=== PATIENT | female | born 2000 ===

== ENCOUNTER 2020-03-18 14:42 | Outpatient (REF) | payer OTHER, SELFPAY ==
[2020-03-18 15:18] LABS: COVID-19 Test Negative (Negative)
== END 2020-03-18 14:43 | disposition home or self-care (01) ==
LOC: HO.LAB 14:42
PROVIDERS: Visit Provider Internal Medicine
DX: Z20.828 Contact with and (suspected) exposure to other viral communicable diseases (principal)
CPT/HCPCS: 87635

== ENCOUNTER 2020-04-11 07:23 | Outpatient (REF) | payer OTHER, SELFPAY | END 2020-04-11 07:24 | disposition home or self-care (01) | LOC: HO.LAB 07:23 | PROVIDERS: Visit Provider Internal Medicine | DX: Z20.828 Contact with and (suspected) exposure to other viral communicable diseases (principal) | CPT/HCPCS: U0003 ==

== ENCOUNTER 2020-04-12 12:09 | Outpatient (REF) | payer OTHER, SELFPAY ==
[2020-04-12 12:42] LABS: COVID-19 Test Negative (Negative)
== END 2020-04-12 12:10 | disposition home or self-care (01) ==
LOC: HO.EMPCOV 12:09
PROVIDERS: Visit Provider Internal Medicine
DX: Z20.828 Contact with and (suspected) exposure to other viral communicable diseases (principal)
CPT/HCPCS: 87635; C9803

== ENCOUNTER 2020-04-19 17:43 | Outpatient (REF) | payer OTHER, SELFPAY ==
[2020-04-19 18:26] LABS: COVID-19 Test Negative (Negative); IDNOW Serial# 55D5AD1C
== END 2020-04-19 17:44 | disposition home or self-care (01) ==
LOC: HO.LAB 17:43
PROVIDERS: Visit Provider Internal Medicine
DX: Z20.828 Contact with and (suspected) exposure to other viral communicable diseases (principal)
CPT/HCPCS: 87635; C9803

== ENCOUNTER 2020-06-09 07:36 | Outpatient (REF) | payer OTHER, SELFPAY ==
[2020-06-09 08:04] LABS: COVID-19 Test Negative (Negative)
== END 2020-06-09 07:37 | disposition home or self-care (01) ==
LOC: HO.EMPCOV 07:36
PROVIDERS: Visit Provider Internal Medicine
DX: Z20.822 Contact with and (suspected) exposure to COVID-19 (principal)
CPT/HCPCS: 36415; 87635; C9803

== ENCOUNTER → 2020-06-10 12:13 | Outpatient (BNVA) | payer OTHER, SELFPAY | PROVIDERS: Visit Provider Advanced Practice Midwife | DX: Z76.89 Persons encountering health services in other specified circumstances (principal) ==

== ENCOUNTER → 2020-07-01 13:46 | Outpatient (BNVA) | payer OTHER, SELFPAY | PROVIDERS: PCP Internal Medicine; Visit Provider Advanced Practice Midwife | DX: Z30.42 Encounter for surveillance of injectable contraceptive (principal); Z32.02 Encounter for pregnancy test, result negative | CPT/HCPCS: 81025; 96372; J1050 ==

== ENCOUNTER → 2020-10-13 09:37 | Outpatient (BNVA) | payer OTHER, SELFPAY | PROVIDERS: PCP Internal Medicine; Visit Provider Advanced Practice Midwife | DX: Z30.013 Encounter for initial prescription of injectable contraceptive (principal) | CPT/HCPCS: 81025; 96372; J1050 ==

== ENCOUNTER 2020-12-29 12:42 | Outpatient (REF) | payer OTHER, SELFPAY ==
[2020-12-30 00:46] LABS: CT PCR NOT DETECTED (Not Detect.); NG PCR NOT DETECTED (Not Detect.)
== END 2020-12-29 12:43 | disposition home or self-care (01) ==
LOC: HO.LAB 12:42
PROVIDERS: PCP Internal Medicine; Referring Provider Internal Medicine; Visit Provider Advanced Practice Midwife
DX: Z01.411 Encounter for gynecological examination (general) (routine) with abnormal findings (principal); N92.1 Excessive and frequent menstruation with irregular cycle; Z11.3 Encounter for screening for infections with a predominantly sexual mode of transmission; Z20.2 Contact with and (suspected) exposure to infections with a predominantly sexual mode of transmission
CPT/HCPCS: 87491; 87591

== ENCOUNTER → 2021-01-05 13:33 | Outpatient (BNVA) | payer OTHER, SELFPAY | PROVIDERS: PCP Internal Medicine; Visit Provider Advanced Practice Midwife | DX: Z30.42 Encounter for surveillance of injectable contraceptive (principal); N93.9 Abnormal uterine and vaginal bleeding, unspecified | CPT/HCPCS: 96372 ==

== ENCOUNTER → 2021-03-02 08:39 | Outpatient (BNVA) | payer OTHER, SELFPAY | PROVIDERS: PCP Internal Medicine; Visit Provider Advanced Practice Midwife | DX: Z30.42 Encounter for surveillance of injectable contraceptive (principal); N93.9 Abnormal uterine and vaginal bleeding, unspecified | CPT/HCPCS: 96372 ==

== ENCOUNTER 2021-03-12 13:49 | Outpatient (REF) | payer OTHER, SELFPAY ==
--- NOTE | ~2021-03-12 | XR_ITS ---
EXAMINATION: XR FOOT, RIGHT CLINICAL INFORMATION: Right foot contusion. COMPARISON: None TECHNIQUE: AP, lateral, and oblique views of the right foot. FINDINGS: There is no acute fracture or dislocation. The joint spaces are unremarkable. The tarsal bones are normally aligned. There is a very small plantar calcaneal spur. The soft tissues are unremarkable. XR/XR foot RT min 3V IMPRESSION: 1. No acute osseous abnormality. 2. Very small plantar calcaneal spur.
== END 2021-03-12 13:50 | disposition home or self-care (01) ==
LOC: HO.HMGCX 13:49
PROVIDERS: PCP Student in an Organized Health Care Education/Training Program; Visit Provider Internal Medicine
DX: S90.31XA Contusion of right foot, initial encounter (principal)
CPT/HCPCS: 73630

== ENCOUNTER 2021-04-07 20:29 | Outpatient (REF) | payer OTHER, SELFPAY ==
[2021-04-07 20:54] LABS: COVID-19 Test Negative (Negative); IDNOW Serial# 9DD0AD1C
== END 2021-04-07 20:30 | disposition home or self-care (01) ==
LOC: HO.LAB 20:29
PROVIDERS: Visit Provider Internal Medicine
DX: Z20.822 Contact with and (suspected) exposure to COVID-19 (principal)
CPT/HCPCS: 36415; 87635; C9803

== ENCOUNTER → 2021-04-27 08:49 | Outpatient (BNVA) | payer OTHER, SELFPAY | PROVIDERS: PCP Student in an Organized Health Care Education/Training Program; Visit Provider Advanced Practice Midwife | DX: Z30.42 Encounter for surveillance of injectable contraceptive (principal); N93.9 Abnormal uterine and vaginal bleeding, unspecified | CPT/HCPCS: 96372 ==

== ENCOUNTER 2021-04-30 19:17 | Outpatient (REF) | payer OTHER, SELFPAY ==
[2021-04-30 20:01] LABS: COVID-19 Test Negative (Negative)
== END 2021-04-30 19:18 | disposition home or self-care (01) ==
LOC: HO.LAB 19:17
PROVIDERS: PCP Internal Medicine; Visit Provider Internal Medicine
DX: Z20.822 Contact with and (suspected) exposure to COVID-19 (principal)
CPT/HCPCS: 36415; 87635

== ENCOUNTER 2021-05-27 15:33 | Outpatient (REF) | payer OTHER, SELFPAY ==
[2021-05-27 16:15] LABS: Influenza A PCR NEGATIVE (Negative); Influenza B PCR NEGATIVE (Negative); Resp Syncy Virus RNA Qual PCR NEGATIVE (Negative); SARS COV2 PCR INHOUSE POSITIVE (Negative)
== END 2021-05-27 15:34 | disposition home or self-care (01) ==
LOC: HO.LNP 15:33
PROVIDERS: Visit Provider Physician Assistant Medical
DX: Z20.822 Contact with and (suspected) exposure to COVID-19 (principal); J06.9 Acute upper respiratory infection, unspecified
CPT/HCPCS: 0241U

== ENCOUNTER → 2021-06-22 10:45 | Outpatient (BNVA) | payer OTHER, SELFPAY | PROVIDERS: PCP Internal Medicine; Visit Provider Advanced Practice Midwife | DX: N93.9 Abnormal uterine and vaginal bleeding, unspecified (principal) | CPT/HCPCS: 96372 ==

== ENCOUNTER 2021-07-08 06:20 | Outpatient (REF) | payer OTHER, SELFPAY ==
--- NOTE | ~2021-07-08 | XR_ITS ---
EXAMINATION: XR CHEST CLINICAL INFORMATION: Cough COMPARISON: None TECHNIQUE: 2 views of the chest were obtained. FINDINGS: No significant abnormality is noted involving the heart, lungs, mediastinum, bony thorax or soft tissues. XR/XR chest 2V IMPRESSION: Unremarkable examination.
== END 2021-07-08 06:21 | disposition home or self-care (01) ==
LOC: HO.XRAY 06:20
PROVIDERS: PCP Internal Medicine; Visit Provider Internal Medicine
DX: R05.9 Cough, unspecified (principal)
CPT/HCPCS: 71046

== ENCOUNTER 2021-08-02 15:47 | Outpatient (REF) | payer OTHER, SELFPAY ==
--- NOTE | 2021-08-02 17:27 | PFT_ITS ---
Forced vital capacity 99%. FEV1 is 82%. FEV1/FVC ratio 72. FEF 25-75 is 48%, which is moderately decreased. MVV is 72%, slightly decreased. Post bronchodilator therapy, FEF 25-75 does improve to almost normal. No other significant change. Total lung capacity 97 and residual volume 83%, normal. Diffusion capacity normal, 97%. CONCLUSION: Possible very mild degree of obstructive airway disorder, which improves after bronchodilator therapy. This finding is consistent with mild bronchial asthma, clinical correlation recommended. MD FILI Foster/MODL / [id number]
== END 2021-08-02 15:48 | disposition home or self-care (01) ==
LOC: HO.RESP 15:47
PROVIDERS: PCP Internal Medicine; Visit Provider Internal Medicine
DX: J45.40 Moderate persistent asthma, uncomplicated (principal)
CPT/HCPCS: 94060; 94727; 94729

== ENCOUNTER → 2021-08-17 08:59 | Outpatient (BNVA) | payer OTHER, SELFPAY | PROVIDERS: Visit Provider Advanced Practice Midwife | DX: Z30.42 Encounter for surveillance of injectable contraceptive (principal) | CPT/HCPCS: 96372 ==

== ENCOUNTER 2021-10-30 00:08 | Emergency (ER) | payer OTHER, SELFPAY ==
--- NOTE | ~2021-10-30 | CT_ITS ---
EXAMINATION: CT ABDOMEN AND PELVIS WITHOUT CONTRAST CLINICAL INFORMATION: Rectal bleeding and lower abdominal pain COMPARISON: None TECHNIQUE: Multidetector volumetric imaging was performed from the superior aspect of the liver through the pubic symphysis. Sagittal and coronal reformatted images were obtained on the technologist's workstation. This CT examination was performed using dose optimization techniques as appropriate, variously including the following: *Automated exposure control *Adjustment of mA and/or kV according to patient size (this includes techniques or standardized protocols for targeted exams where dose is matched to indication/reason for exam; i.e. extremities or head) *Use of iterative reconstruction technique DLP: 452 mGy-cm FINDINGS: LUNG BASES: The visualized lung bases are unremarkable. LIVER, GALLBLADDER, AND BILIARY TREE: The liver is normal in size, shape, and attenuation. No focal hepatic lesion or biliary ductal dilatation is present. The gallbladder is unremarkable with no evidence of radiopaque gallstones, gallbladder wall thickening, or obvious pericholecystic inflammatory changes. PANCREAS: Unremarkable. SPLEEN: Unremarkable. ADRENAL GLANDS: Unremarkable. KIDNEYS AND URETERS: The kidneys are normal in size, shape, and attenuation. No hydronephrosis, hydroureter, or calculi seen. No perinephric stranding. BLADDER: Unremarkable. GASTROINTESTINAL TRACT: No evidence of bowel obstruction. Evaluation for colonic wall thickening is limited due to luminal collapse in some regions, though there is suggestion of mild wall thickening in the descending colon. No free fluid or free air is seen. ABDOMINAL WALL: No significant hernia is appreciated. LYMPH NODES: No lymphadenopathy is seen, though assessment is limited in the absence of intravenous contrast. VASCULAR: Unremarkable. PELVIC VISCERA: Unremarkable. OSSEOUS STRUCTURES: Bilateral L5 pars defects noted. CT/CT abdomen pelvis wo con IMPRESSION: Suboptimal evaluation for wall thickening in some regions of the colon due to luminal collapse. However, there is mural prominence of the descending colon which could reflect a mild colitis in the proper clinical setting.
[2021-10-30 00:19] VITALS: BMI 26.5
[2021-10-30 00:31] VITALS: BP 117/89; PULSE 79; RESP 18; O2SAT 99
--- NOTE | 2021-10-30 00:34 | ED.GENADULT ---
HPI - General Adult General Chief complaint: General Medical Stated complaint: blood in stool Time Seen by Provider: 10/30/21 00:20 Source: patient Mode of arrival: ambulatory Limitations: no limitations History of Present Illness HPI narrative: 21 years old female came in for evaluation of lower abdominal pain and rectal bleed. Started about 4 hours ago when patient started to have some abdominal cramps felt like a premenstrual cramps, patient went and had a bowel movement which was mixed with bright red blood from her rectum. No nausea, no vomiting, no abdominal pain, no urinary tract infection. Never had a history of GI problems of or rectal bleeding. Related Data Previous Rx's Medication Instructions Recorded medroxyprogesterone 150 mg/mL 150 mg IM .q 8 weeks #1 ml 01/05/21 intramuscular suspension albuterol sulfate 90 mcg/actuation 2 puff PO Q6H PRN 30 Days #8.5 cap 05/29/21 aerosol inhaler albuterol sulfate 90 mcg/actuation 1 inh INHALATION QID PRN 30 Days 07/04/21 aerosol inhaler (ProAir HFA) #6.7 g fluticasone propionate 44 1 puff INHALATION BID 30 Days 07/04/21 mcg/actuation HFA aerosol inhaler #10.6 g (Flovent HFA) albuterol sulfate 90 mcg/actuation 2 puff INHALATION Q4-6H PRN #6.7 g 10/29/21 aerosol inhaler Allergies Allergy/AdvReac Type Severity Reaction Status Date / Time sulfamethoxazole Allergy Severe Hives Verified 07/04/21 12:51 [From Bactrim] trimethoprim [From Bactrim] Allergy Severe Hives Verified 07/04/21 12:51 Sulfa (Sulfonamide Allergy Unknown hives Verified 07/04/21 12:51 Antibiotics) seasonal Allergy Unknown Unknown Uncoded 07/04/21 12:51 SEASONAL ALLERGIES Allergy Unknown ITCH/SNEEZI Uncoded 07/04/21 12:51 NG Review of Systems Review of Systems: All other systems are reviewed and are negative Constitutional: Reports as per HPI and Reports no additional constitutional complaints Eyes: Reports as per HPI and Reports no additional eye complaints Reports system reviewed and no additional complaints, except as documented Cardiovascular: Reports as per HPI and Reports no additional cardiovascular complaints Respiratory: Reports as per HPI and Reports no additional respiratory complaints Gastrointestinal: Reports as per HPI and Reports no additional gastrointestinal complaints Genitourinary: Reports no additional female genitourinary complaints Musculoskeletal: Reports no additional musculoskeletal complaints Skin/Breast: Reports system reviewed and no additional complaints, except as docu Psychiatric: Reports no additional psychiatric complaints Endocrine: Reports no additional endocrine complaints Hematologic/Lymphatic: Reports no additional hematologic/lymphatic complaints Allergic/Immunologic: Reports no additional allergic/immunologic complaints Reports system reviewed and no additional complaints, except as documented and Reports Abnormal speech present [facility] Past Medical History Medical History Allergic rhinitis Mild asthma Moderate persistent asthma Surgical History No history of previous surgery Family History Family History Paternal Grandmother Breast cancer Mother HTN (hypertension) Diabetes mellitus Maternal Grandmother Throat cancer Social History Social History Housing: Apartment Alcohol intake: current Alcohol intake frequency: holidays/special occasions only Alcohol type: wine Patient Tobacco Use Status: Never used Tobacco e-Cigarette/Vaping Use: Never Used Second Hand Smoke Exposure: No Use of substances other than those prescribed or required for medical reasons: No Advance Directives: No Advance Directives Information Provided: No Patient : No service: No Current occupational status: employed 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 Blood pressure normal. Heart rate normal. Respiration rate normal. Temperature normal. Oxygen saturation normal. Appearance: Alert. Oriented X3. No acute distress. Head: Normal external exam. Normocephalic. Atraumatic. No Cohn signs noted. No raccoon eyes noted Eyes: PERRLA. EOMI. Conjunctiva and sclera normal. Eyelids normal. ENT: TM's Normal. Pharynx normal. Uvula midline. Moist mucous membranes. No trismus noted. No drooling noted. No muffled voice noted. Neck: Normal inspection. Neck supple. FROM. No adenopathy. Thyroid Normal. No meningeal signs. No neck mass noted. CVS: Normal heart rate and rhythm. Heart sound normal. No murmurs noted. Pulses normal throughout. Respiratory: No respiratory distress. Painless inspiration. Breath sounds normal. No wheezes/rales/rhonchi noted. Chest nontender. No accessory muscle usage noted or decreased air movement noted. Abdomen: Soft and nontender. Bowel sounds normal in all 4 quadrants. No distention noted. No organomegaly noted. No visible injury noted. Rectal exam: In presence of female strip cutter in the room rectal exam was performed, now external hemorrhoid or internal hemorrhoid, vault has no stool or blood. Back: No CVA tenderness. Full range of motion noted. Skin: Skin warm and dry. Normal skin color. Normal skin turgor. No rashes/lesions/lacerations noted. Extremities: No lower extremity edema. Extremities exhibit normal range of motion. Extremities nontender. Neuro: Oriented X 3. Cranial nerve exam: II-XII are grossly intact No motor deficit. No sensory deficit. Reflexes normal. Course Course Course Narrative: 21 years old female came in with lower abdominal pain and rectal bleeding. While in the emergency department no more bloody bowel movement or rectal bleeding, labs are unremarkable, vital signs/orthostatic vital sign are unremarkable, awaiting for CT abdomen and pelvis which signed out to Dr. Coughlin to check. If negative CT patient can go home and follow-up with GI as an outpatient Medical Decision Making Lab Data Lab results reviewed: Yes I reviewed the patient's lab results. Result diagrams: 10/30/21 00:54 10/30/21 00:54 Labs: Lab Results 10/30/21 10/30/21 10/30/21 Range/Units 00:54 00:54 01:03 WBC 4.9 (4.8-10.8) X10*3/uL RBC 4.29 (4.20-5.50) X10*6/uL Hgb 13.3 (12.0-16.0) g/dl Hct 39.7 (37.0-47.0) % MCV 92.5 (80.0-98.0) fL MCH 31.0 (27.0-33.0) pg MCHC 33.5 (31.0-35.0) g/dl RDW 12.5 (11.0-16.0) % Plt Count 198 (160-400) X10*3/uL MPV 9.2 L (9.4-12.3) fL Immature Gran % (Auto) 0.2 (0.0-0.4) % Neut % (Auto) 46.4 (45-73) % Lymph % (Auto) 37.8 (20-40) % Amelia % (Auto) 11.7 H (2-11) % Eos % (Auto) 3.7 (0-4) % Baso % (Auto) 0.2 (0-2) % Lymph # (Auto) 1.8 (1.2-4.9) X10*3/uL Amelia # (Auto) 0.6 (0.1-1.2) X10*3/uL Eos # (Auto) 0.2 (0.0-0.4) X10*3/uL Baso # (Auto) 0.0 (0.0-0.2) X10*3/uL Abs Immat Gran (auto) 0.01 (0.00-0.03) X10*3/uL Absolute Neuts (auto) 2.3 (2.0-8.3) x10*3/uL Absolute Nucleated RBC 0.000 (0.0-0.012) X10*3/uL Nucleated RBC % (auto) 0.0 (0.0-0.2) /100WBC Smear Tech's Comments VERIFIED Sodium 140 (135-145) mmol/L Potassium 3.8 (3.3-5.1) mmol/L Chloride 108 (96-108) mmol/L Carbon Dioxide 22 (22-29) mmol/L Anion Gap 14 (12-20) BUN 15 (9-16) mg/dL Creatinine 0.79 (0.5-1.4) mg/dL Estim Creat Clear Calc 102.5 Estimated GFR > 60 Random Glucose 96 (60-115) mg/dL Calcium 9.0 (8.4-10.2) mg/dL Total Bilirubin 0.2 (0.0-1.0) mg/dL Direct Bilirubin < 0.2 (0.0-0.5) mg/dL AST 18 (5-31) U/L ALT 13 (0-31) U/L Alkaline Phosphatase 68 (39-117) U/L Total Protein 7.8 (6.5-8.0) g/dL Albumin 4.3 (3.5-5.0) g/dL Lipase 22 (8-78) U/L Urine Color YELLOW Urine Appearance CLEAR Urine pH 6.0 (5.0-8.0) Ur Specific [place] 1.010 (1.005-1.025) Urine Protein NEG (NEG-TRACE) MG/DL Urine Glucose (UA) NEG (NEG) MG/DL Urine Ketones NEG (NEG) MG/DL Urine Blood NEG (NEG) Urine Nitrite NEG (NEG) Ur Leukocyte Esterase NEG (NEG) Urine Test (NEGATIVE) 10/30/21 Range/Units 01:03 WBC (4.8-10.8) X10*3/uL RBC (4.20-5.50) X10*6/uL Hgb (12.0-16.0) g/dl Hct (37.0-47.0) % MCV (80.0-98.0) fL MCH (27.0-33.0) pg MCHC (31.0-35.0) g/dl RDW (11.0-16.0) % Plt Count (160-400) X10*3/uL MPV (9.4-12.3) fL Immature Gran % (Auto) (0.0-0.4) % Neut % (Auto) (45-73) % Lymph % (Auto) (20-40) % Amelia % (Auto) (2-11) % Eos % (Auto) (0-4) % Baso % (Auto) (0-2) % Lymph # (Auto) (1.2-4.9) X10*3/uL Amelia # (Auto) (0.1-1.2) X10*3/uL Eos # (Auto) (0.0-0.4) X10*3/uL Baso # (Auto) (0.0-0.2) X10*3/uL Abs Immat Gran (auto) (0.00-0.03) X10*3/uL Absolute Neuts (auto) (2.0-8.3) x10*3/uL Absolute Nucleated RBC (0.0-0.012) X10*3/uL Nucleated RBC % (auto) (0.0-0.2) /100WBC Smear Tech's Comments Sodium (135-145) mmol/L Potassium (3.3-5.1) mmol/L Chloride (96-108) mmol/L Carbon Dioxide (22-29) mmol/L Anion Gap (12-20) BUN (9-16) mg/dL Creatinine (0.5-1.4) mg/dL Estim Creat Clear Calc Estimated GFR Random Glucose (60-115) mg/dL Calcium (8.4-10.2) mg/dL Total Bilirubin (0.0-1.0) mg/dL Direct Bilirubin (0.0-0.5) mg/dL AST (5-31) U/L ALT (0-31) U/L Alkaline Phosphatase (39-117) U/L Total Protein (6.5-8.0) g/dL Albumin (3.5-5.0) g/dL Lipase (8-78) U/L Urine Color Urine Appearance Urine pH (5.0-8.0) Ur Specific [place] (1.005-1.025) Urine Protein (NEG-TRACE) MG/DL Urine Glucose (UA) (NEG) MG/DL Urine Ketones (NEG) MG/DL Urine Blood (NEG) Urine Nitrite (NEG) Ur Leukocyte Esterase (NEG) Urine Test NEGATIVE (NEGATIVE) Discharge Plan Discharge Clinical Impression: Bright red rectal bleeding Patient Disposition: Home, Self-Care Instructions: Gastrointestinal Bleeding (ED) Prescriptions: No Action albuterol sulfate 90 mcg/actuation HFA aerosol inhaler 2 puff PO Q6H PRN (Reason: bronchospasm) 30 Days Qty: 8.5 6RF albuterol sulfate 90 mcg/actuation HFA aerosol inhaler 2 puff inhalation Q4-6H PRN (Reason: shortness of breath or wheezing) Qty: 6.7 0RF Flovent HFA 44 mcg/actuation HFA aerosol inhaler 1 puff inhalation BID 30 Days Qty: 10.6 2RF Rx Instructions: administer with spacer albuterol sulfate [ProAir HFA] 90 mcg/actuation HFA aerosol inhaler 1 inh inhalation QID PRN (Reason: shortness of breath or wheezing) 30 Days Qty: 6.7 2RF medroxyprogesterone [Depo-Provera] 150 mg/mL syringe 150 mg IM ONCE Qty: 1 0RF medroxyprogesterone 150 mg/mL suspension 150 mg IM .q 8 weeks Qty: 1 6RF Referrals: Shad Beatty MD [Physician] - Jackie Ambrocio MD [Primary Care Provider] - Stand Alone Forms: Work/School Release
[2021-10-30 00:42] VITALS: BP 108/73; PULSE 73
[2021-10-30 00:45] VITALS: BP 107/78; PULSE 71
[2021-10-30 00:46] VITALS: BP 117/79; PULSE 72
--- NOTE | 2021-10-30 00:56 | PC.NURSE ---
pt a&ox3, vss, labs drawn, 20G IV placed left AC, flds started. pt reports 3/10 lower abd cramping. had two episode of bright lisa blood/diarrhea - pt felt sudden urge to have a bowel movement. urine sample obtained. provider in room - rectal exam performed, pt tolerated well. pending CT scan.
[2021-10-30 00:58] LABS: Basophils Percent Auto 0.2 % (0-2); Eosinophils Absolute Auto 0.2 X10*3/uL (0.0-0.4); Eosinophils Percent Auto 3.7 % (0-4); Hematocrit 39.7 % (37.0-47.0); Hemoglobin 13.3 g/dl (12.0-16.0); Imm Gran Abs Auto 0.01 X10*3/uL (0.00-0.03); Imm Gran Pct Auto 0.2 % (0.0-0.4); Lymphocytes Absolute Auto 1.8 X10*3/uL (1.2-4.9); Lymphocytes Percent Auto 37.8 % (20-40); Mean Corpuscular HGB Conc 33.5 g/dl (31.0-35.0); Mean Corpuscular Volume 92.5 fL (80.0-98.0); Mean Platelet Volume 9.2 fL (9.4-12.3); Monocytes Absolute Auto 0.6 X10*3/uL (0.1-1.2); Monocytes Percent Auto 11.7 % (2-11); Neutrophils Absolute Auto 2.3 x10*3/uL (2.0-8.3); Neutrophils Percent Auto 46.4 % (45-73); Platelet Count 198 X10*3/uL (160-400); Red Blood Count 4.29 X10*6/uL (4.20-5.50); Red Cell Distribution Width 12.5 % (11.0-16.0); SCAN SMEAR FLAG 1; White Blood Count 4.9 X10*3/uL (4.8-10.8)
[2021-10-30 01:00] LABS: MANUAL DIFF FLAG SCAN
[2021-10-30 01:08] LABS: Appearance Urine CLEAR; Color Urine YELLOW; Glucose Urine UA NEG (NEG); Leukocyte Esterase Urine NEG (NEG); Nitrite Urine NEG (NEG); Urine Blood NEG (NEG); Urine Ketones NEG (NEG); Urine Protein NEG (NEG-TRACE)
[2021-10-30] MEDS: 0.9 % Sodium Chloride 1,000 ML 999 ML IV (01:09)
[2021-10-30 01:12] LABS: UPreg QC Valid YES; Urine Pregnancy NEGATIVE (NEGATIVE)
[2021-10-30 01:16] LABS: SLIDE REVIEW VERIFIED
[2021-10-30 01:25] LABS: Alanine Aminotransferase 13 U/L (0-31); Albumin Level 4.3 g/dL (3.5-5.0); Alkaline Phosphatase 68 U/L (39-117); Anion Gap 14 (12-20); Aspartate Amino Transferase 18 U/L (5-31); Bilirubin Direct < 0.2 mg/dL (0.0-0.5); Bilirubin Total 0.2 mg/dL (0.0-1.0); Blood Urea Nitrogen 15 mg/dL (9-16); Carbon Dioxide 22 mmol/L (22-29); Chloride 108 mmol/L (96-108); Creatinine Clr Calc Pharmacy 102.5; Estimated Glomerular Filt Rate > 60; Glucose Random 96 mg/dL (60-115); Lipase 22 U/L (8-78); Potassium 3.8 mmol/L (3.3-5.1); Sodium 140 mmol/L (135-145); Total Protein 7.8 g/dL (6.5-8.0)
== END 2021-10-30 03:27 | disposition home or self-care (01) ==
PROVIDERS: Emergency Provider Emergency Medicine; PCP Internal Medicine
DX: K62.5 Hemorrhage of anus and rectum (principal); R10.30 Lower abdominal pain, unspecified
CPT/HCPCS: 36415; 74176; 80048; 80076; 81003; 81025; 83690; 85025; 96360; 99284

== ENCOUNTER → 2021-11-03 07:48 | Outpatient (BNVA) | payer OTHER, SELFPAY | PROVIDERS: PCP Internal Medicine; Visit Provider Advanced Practice Midwife | DX: Z30.013 Encounter for initial prescription of injectable contraceptive (principal) | CPT/HCPCS: 81025 ==

== ENCOUNTER → 2021-11-04 14:58 | Outpatient (BNVA) | payer OTHER, SELFPAY | PROVIDERS: PCP Internal Medicine; Visit Provider Advanced Practice Midwife | DX: Z30.42 Encounter for surveillance of injectable contraceptive (principal) | CPT/HCPCS: 96372 ==

== ENCOUNTER → 2021-12-30 08:49 | Outpatient (BNVA) | payer OTHER, SELFPAY | PROVIDERS: PCP Internal Medicine; Visit Provider Advanced Practice Midwife | DX: Z30.42 Encounter for surveillance of injectable contraceptive (principal) | CPT/HCPCS: 96372 ==

== ENCOUNTER → 2022-02-24 12:42 | Outpatient (BNVA) | payer OTHER, SELFPAY | PROVIDERS: PCP Internal Medicine; Visit Provider Advanced Practice Midwife | DX: Z30.42 Encounter for surveillance of injectable contraceptive (principal) | CPT/HCPCS: 96372 ==

== ENCOUNTER → 2022-04-19 08:52 | Outpatient (BNVA) | payer OTHER, SELFPAY | PROVIDERS: PCP Internal Medicine; Visit Provider Advanced Practice Midwife | DX: Z30.42 Encounter for surveillance of injectable contraceptive (principal) | CPT/HCPCS: 96372 ==

== ENCOUNTER 2022-05-09 08:39 | Outpatient (REF) | payer OTHER, SELFPAY | END 2022-05-09 08:40 | disposition home or self-care (01) | LOC: HO.LNP 08:39 | PROVIDERS: Visit Provider Advanced Practice Midwife | DX: Z13.89 Encounter for screening for other disorder (principal) ==

== ENCOUNTER 2022-05-09 08:51 | Outpatient (REF) | payer OTHER, SELFPAY ==
[2022-05-09 11:05] LABS: HBc Num1 0.04 S/CO (0.00-0.79); HIV AB/AG Nonreactive (Nonreactive); HIV Num 1 0.06 S/CO (0.00-0.99); Hepatitis B Core Antibody Nonreactive (Nonreactive); ~HepC Num1 0.06 S/CO (0.00-0.79); ~Hepatitis C Antibody Nonreactive (Nonreactive)
[2022-05-09 13:32] LABS: Syphilis Screen Nonreactive (Nonreactive)
[2022-05-09 18:45] LABS: CT PCR NOT DETECTED (Not Detect.); NG PCR NOT DETECTED (Not Detect.)
== END 2022-05-09 08:52 | disposition home or self-care (01) ==
LOC: HO.LAB 08:51
PROVIDERS: PCP Internal Medicine; Visit Provider Advanced Practice Midwife
DX: Z11.3 Encounter for screening for infections with a predominantly sexual mode of transmission (principal); Z11.4 Encounter for screening for human immunodeficiency virus [HIV]; Z20.2 Contact with and (suspected) exposure to infections with a predominantly sexual mode of transmission
CPT/HCPCS: 86704; 86780; 86803; 87389; 87491; 87591

== ENCOUNTER 2022-06-07 17:34 | Outpatient (REF) | payer OTHER, SELFPAY ==
[2022-06-07 18:26] LABS: Influenza A PCR NEGATIVE (Negative); Influenza B PCR NEGATIVE (Negative); Resp Syncy Virus RNA Qual PCR NEGATIVE (Negative); SARS COV2 PCR INHOUSE NEGATIVE (Negative)
== END 2022-06-07 17:35 | disposition home or self-care (01) ==
LOC: HO.LNP 17:34
PROVIDERS: Visit Provider Physician Assistant
DX: Z20.822 Contact with and (suspected) exposure to COVID-19 (principal); B34.9 Viral infection, unspecified
CPT/HCPCS: 0241U

== ENCOUNTER → 2022-06-14 08:33 | Outpatient (BNVA) | payer OTHER, SELFPAY | PROVIDERS: PCP Internal Medicine; Visit Provider Advanced Practice Midwife | DX: Z30.42 Encounter for surveillance of injectable contraceptive (principal) | CPT/HCPCS: 96372 ==

== ENCOUNTER → 2022-08-09 08:51 | Outpatient (BNVA) | payer OTHER, SELFPAY | PROVIDERS: PCP Internal Medicine; Visit Provider Advanced Practice Midwife | DX: Z30.42 Encounter for surveillance of injectable contraceptive (principal); N93.9 Abnormal uterine and vaginal bleeding, unspecified | CPT/HCPCS: 96372 ==

== ENCOUNTER → 2022-10-04 08:47 | Outpatient (BNVA) | payer OTHER, SELFPAY | PROVIDERS: PCP Internal Medicine; Visit Provider Advanced Practice Midwife | DX: Z30.42 Encounter for surveillance of injectable contraceptive (principal) | CPT/HCPCS: 96372 ==

== ENCOUNTER 2022-11-19 04:00 | Outpatient (REF) | payer OTHER, SELFPAY ==
[2022-11-19 04:48] LABS: IDNOW Serial# 08D9AD1C; Strep A Nucleic Acid Negative (Negative)
== END 2022-11-19 04:01 | disposition home or self-care (01) ==
LOC: HO.LAB 04:00
PROVIDERS: Visit Provider Emergency Medicine Emergency Medical Services
DX: J02.0 Streptococcal pharyngitis (principal)
CPT/HCPCS: 87070; 87147; 87651

== ENCOUNTER 2022-12-06 13:31 | Outpatient (AMB) | payer OTHER, SELFPAY ==
[2022-12-06 13:42] VITALS: BP 110/72; BMI 28.7
--- NOTE | 2022-12-06 13:42 | MHC.OFFVIS ---
Intake Vital Signs 12/06/22 13:42 Height 5 ft 3 in Weight 162 lb BMI 28.7 BP 110/72 Intake Visit Reasons: BC discussion/30 Intake Note: Depo needed Prior Auth, denied by Insurance company not covered by plan The patient agreed to use of a medical tech during this encounter. Scribed for MINDY Cruz by Anne Muniz, medical tech, on 12/06/2022 at 1:55 pm EST. Allergies Sulfa (Sulfonamide Antibiotics) Allergy (Unknown, Verified 12/06/22 13:43) hives SEASONAL ALLERGIES Allergy (Unknown, Uncoded 11/20/22 08:29) ITCH/SNEEZING HPI HPI Comments History of Present Illness Details She is here today for BC discussion. Depo needed Prior Auth to be given q8wks., due to BTB and was previously covered, was denied by Insurance company not covered by plan as the prior auth yu used twice would not process the authorization and at this time she is frustrated and opts for another method. States she has had VB for a week since late for her Depo injection last week. Currently sexually active uses condoms as BC. She denies any risks to . Patient denies any contraindications to control such as tobacco use, migraines with aura, high blood pressure, liver disease, blood clotting disorders ATUL+, DVT, and Lupus. She denies smoking. [facility] Medical History Allergic rhinitis Mild asthma Moderate persistent asthma Surgical History No history of previous surgery Family History Paternal Grandmother Breast cancer Mother HTN (hypertension) Diabetes mellitus Maternal Grandmother Throat cancer Social History Household Members Other:: sister Housing: Apartment Alcohol intake: current Alcohol intake frequency: holidays/special occasions only Alcohol type: wine Patient Tobacco Use Status: Never used Tobacco e-Cigarette/Vaping Use: Never Used Second Hand Smoke Exposure: No service: No Current occupational status: employed 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 Current occupational exposures/hazards: No Sexual orientation: Straight/Heterosexual Gender identity: Female Female Reproductive History Menstrual Age of Menarche: 10 Physical Exam Vital Signs: Last Vital Signs BP 110/72 12/06/22 13:42 BMI result Body Mass Index 28.7 Const General: cooperative, healthy appearing, comfortable, no acute distress, well developed, alert and awake Assessment & Plan Assessment & Plan (1) control counseling: Code(s): Z30.09 - Encounter for other general counseling and advice on contraception Plan: Discussed: Counseled on OCP use: Reviewed use, side effects and warning of OCP, including ACHES. Instructions were given to use a back up method for contraception for 7 days. Always use condoms for STD prevention. Instructed patient to take for at least 2-3 months for her body to get acclimated to it. Recommended she take pill at same time every day with food to prevent stomach upset. If she starts missing doses, she may consider switching from OCP. Instructed to use back up method for the length of the pack if she misses more than one dose. Monitor her bleeding and contact the office with any concerns. She was instructed to go to ER if she develops loss of vision, severe headache that does not resolve, chest pain, difficulty breathing, abdominal pain, or severe pain or tenderness in extremity. She will call the office with any concerns. Rx for Apri sent to pharmacy. Instructed patient to start OCP within the first 5 days of her period. Return in 3-4 months for pill check. All of her questions and concerns were addressed to the best of my ability and shared decision making. She is agreeable to plan of care. (2) Contraceptive management: Code(s): Z30.9 - Encounter for contraceptive management, unspecified Coding Level of Care Code Est Pt Level 3 (66433) Diagnoses control counseling Z30.09 Contraceptive management Z30.9
== END 2022-12-06 14:13 | disposition home or self-care (01) ==
LOC: HO.HWS 13:31
PROVIDERS: PCP Internal Medicine; Visit Provider Advanced Practice Midwife
DX: Z30.09 Encounter for other general counseling and advice on contraception (principal); Z30.9 Encounter for contraceptive management, unspecified
CPT/HCPCS: 99213

== ENCOUNTER → 2022-12-06 13:31 | Outpatient (BNVA) | payer OTHER, SELFPAY | PROVIDERS: PCP Internal Medicine; Visit Provider Advanced Practice Midwife ==

== ENCOUNTER 2022-12-08 14:05 | Emergency (ER) | payer OTHER, SELFPAY ==
--- NOTE | ~2022-12-08 | US_ITS ---
EXAMINATION: US VENOUS ULTRASOUND WITH DOPPLER LOWER EXTREMITY, RIGHT CLINICAL INFORMATION: Right lower extremity pain. COMPARISON: None available. TECHNIQUE: Ultrasound of the deep veins is performed from the hip to the calf with compression sonography and color and pulse Doppler assessment. Spectral analysis with color-flow imaging is performed. FINDINGS: There is normal venous compression and respiratory variation and augmented flow. The visualized common femoral vein, superficial femoral vein, profunda femoral vein, popliteal vein, and the trifurcation region shows no evidence of deep venous thrombosis. If the patient's symptoms persist, followup ultrasound in 5 days 7 days might be of value to exclude proximal propagation from a non-visualized calf vein. US/US venous duplex LE RT IMPRESSION: No DVT demonstrated in the right lower extremity.
--- NOTE | 2022-12-08 14:57 | ED_ITS ---
HPI - Extremity Injury (Lower) General Chief Complaint: Extremity Injury, Lower Stated Complaint: quest dvt r leg Time Seen by Provider: 12/08/22 15:42 Source: patient and RN notes reviewed Mode of arrival: ambulatory Limitations: no limitations History of Present Illness HPI Narrative: This is a [id number]-female presenting to the emergency department with complaints of right calf pain and rash since today. Pt denies any recent trauma, injury, heavy lifting to her calf. 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 Patient denies any fevers, chills, chest pain, shortness of breath. No recent travel, surgery, hospitalizations or surgeries. She is on the depo-shot. No hx of blood clots or cancer history. No clotting disorders that run in her family. No other complaints or concerns at this time. Severity: moderate Relieving factors: nothing Exacerbating factors: nothing Other symptoms: none Related Data Previous Rx's Medication Instructions Recorded fluticasone propionate 44 1 puff inhalation BID 30 days 07/04/21 mcg/actuation HFA aerosol inhaler #10.6 grams (Flovent HFA) albuterol sulfate 90 mcg/actuation 2 puff inhalation Q6H PRN 06/07/22 aerosol inhaler shortness of breath or wheezing #6.7 grams cyclobenzaprine 10 mg tablet 10 mg PO Q8H #20 tabs 08/01/22 albuterol sulfate 90 mcg/actuation 2 puff inhalation Q4-6H PRN 11/25/22 aerosol inhaler shortness of breath or wheezing #6.7 grams desogestrel 0.15 mg-ethinyl 1 tab PO DAILY 28 days #28 tabs 12/08/22 estradiol 0.03 mg tablet (Apri) Allergies Allergy/AdvReac Type Severity Reaction Status Date / Time Sulfa (Sulfonamide Allergy Unknown hives Verified 12/06/22 13:43 Antibiotics) SEASONAL ALLERGIES Allergy Unknown ITCH/SNEEZI Uncoded 11/20/22 08:29 NG Review of Systems Review of Systems: Yes all other systems are reviewed and are negative PMFSH Past Medical History Medical History Allergic rhinitis Mild asthma Moderate persistent asthma Surgical History No history of previous surgery Family History Family History Paternal Grandmother Breast cancer Mother HTN (hypertension) Diabetes mellitus Maternal Grandmother Throat cancer Social History Social History Household Members Other:: sister Housing: Apartment Alcohol intake: current Alcohol intake frequency: holidays/special occasions only Alcohol type: wine Patient Tobacco Use Status: Never used Tobacco e-Cigarette/Vaping Use: Never Used Second Hand Smoke Exposure: No Advance Directives: No Advance Directives Information Provided: No service: No Current occupational status: employed 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 No acute distress. HEENT: Normal inspection CVS: Normal heart rate and rhythm. Pulses normal. Respiratory: No respiratory distress Skin: Warm, dry, no rashes noted to exposed skin. Normal skin color. Normal skin turgor. Extremities: Right anterior leg there is a flat, slightly reticular hyperpigmentation that is slightly tender to palpation, no induration, or warmth. Right calf is nontender. Negative Homans sign. DP pulses 2+. Sensation intact. Neuro: Oriented X 3. No motor deficit. No sensory deficit. Course Course Course Narrative: RME: 22yoF w/PMHx asthma, on Depro Provera c/o RLE pain/calf pain w/mild swelling and mottling noted today. +RLE mottling, mild calf ttp, no pitting edema, NV intact distally US venous duplex ordered Full HPI, ROS and PE to be performed by primary ED provider. Medical Decision Making Medical Decision Making MDM Narrative: 22 year old female presenting to the emergency department for evaluation of right leg pain and rash since this morning. 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 On examination, patient has a reticular rash consistent with erythema AB igne. Ultrasound of right lower extremity shows no DVT. Patient vital signs are within normal limits , no tenderness to palpation along the calf. Patient is otherwise feeling well. I explained to patient that exposure to space heaters can cause this type of rash. This rash is self limiting and will resolve on its own. Patient educated the importance of returning if any new or worsening symptoms occur, patient understands and agrees with planned. Patient stable for discharge. Differential Diagnosis Differential Diagnoses: The differential diagnosis associated with the presentation includes erythema ab igne, cellulitis, contact dermatitiss, DVT Radiology Impression Discussion of test interpretation with radiology: I have reviewed the radiologist's reading. Radiologist Impression: EXAMINATION:? US VENOUS ULTRASOUND WITH DOPPLER LOWER EXTREMITY, RIGHT CLINICAL INFORMATION:? Right lower extremity pain. COMPARISON:? None available. TECHNIQUE: Ultrasound of the deep veins is performed from the hip to the calf with compression sonography and color and pulse Doppler assessment. Spectral analysis with color-flow imaging is performed. FINDINGS: There is normal venous compression and respiratory variation and augmented flow. The visualized common femoral vein, superficial femoral vein, profunda femoral vein, popliteal vein, and the trifurcation region shows no evidence of deep venous thrombosis. If the patient's symptoms persist, followup ultrasound in 5 days 7 days might be of value to exclude proximal propagation from a non-visualized calf vein. US/US venous duplex LE RT IMPRESSION: No DVT demonstrated in the right lower extremity. Dictated By: Massiel Asencio MD Discharge Plan Discharge Clinical Impression: Erythema ab igne Patient Disposition: Home, Self-Care Instructions: Photosensitivity (ED) Additional Instructions: Your ultrasound was negative for a blood clot today. Your symptoms are likely due to a reaction to using a space heater. Please stop using space heaters especially being in close proximity to one. Your symptoms should resolve on its own. You may take Tylenol or Motrin as needed for your pain. Please rest your leg. If any new or worsening symptoms occur please return for re-evaluation. Prescriptions: No Action albuterol sulfate 90 mcg/actuation HFA aerosol inhaler 2 puff inhalation Q4-6H PRN (Reason: shortness of breath or wheezing) Qty: 6.7 0RF desogestrel-ethinyl estradiol [Apri] 0.15-0.03 mg tablet 1 tab PO DAILY 28 Days Qty: 28 3RF cyclobenzaprine 10 mg tablet 10 mg PO Q8H Qty: 20 0RF Flovent HFA 44 mcg/actuation HFA aerosol inhaler 1 puff inhalation BID 30 Days Qty: 10.6 2RF Rx Instructions: administer with spacer Adacel(Tdap Adolesn/Adult)(PF) 2 Lf-(2.5-5-3-5 mcg)-5Lf/0.5 mL syringe 0.5 ml IM ONCE Qty: 0.5 0RF albuterol sulfate 90 mcg/actuation HFA aerosol inhaler 2 puff inhalation Q6H PRN (Reason: shortness of breath or wheezing) Qty: 6.7 0RF Interventions: ED Discharge Assessment Last Done: 12/08/22 17:18 Discharge Date/Time: 12/08/22 17:19
[2022-12-08 14:58] VITALS: BP 126/88; PULSE 84; RESP 14; TEMP 36.6; O2SAT 99; BMI 28.7
[2022-12-08 16:16] VITALS: BP 128/87; PULSE 69; RESP 16; TEMP 37.2; O2SAT 98
== END 2022-12-08 17:19 | disposition home or self-care (01) ==
PROVIDERS: Emergency Provider Emergency Medicine; PCP Internal Medicine
DX: L59.0 Erythema ab igne [dermatitis ab igne] (principal); M79.661 Pain in right lower leg; R21 Rash and other nonspecific skin eruption; J45.20 Mild intermittent asthma, uncomplicated; Z79.899 Other long term (current) drug therapy
CPT/HCPCS: 93971; 99283; 99284

== ENCOUNTER 2023-03-13 10:35 | Outpatient (AMB) | payer OTHER, SELFPAY ==
[2023-03-13 10:36] VITALS: BP 120/80; BMI 29.2
--- NOTE | 2023-03-13 10:36 | MHC.OFFVIS ---
Intake Vital Signs 03/13/23 10:36 Height 5 ft 3 in Weight 165 lb BMI 29.2 BP 120/80 Intake Visit Reasons: 3 month pill check Intake Note: The patient agreed to use of a director medical economics during this encounter. Scribed for MINDY Cruz by Anne Muniz director medical economics, on 03/13/2023 at 10:49 am EST. Allergies Sulfa (Sulfonamide Antibiotics) Allergy (Unknown, Verified 03/13/23 10:38) hives SEASONAL ALLERGIES Allergy (Unknown, Uncoded 11/20/22 08:29) ITCH/SNEEZING Is last menstrual period known: Yes Last menstrual period: 02/25/23 HPI HPI Comments History of Present Illness Details She is here for her 3 month BC OCP check up. Reports she is doing well; experiencing slight breast tenderness cramps but is taking OTC meds which help. She denies any contraindications to control such as: migraines with aura, history of DVT or pulmonary emboli, high blood pressure, liver disease, thrombolic disorders, Lupus, +ATUL, or smoking. [facility] Medical History Moderate persistent asthma Allergic rhinitis Mild asthma Surgical History No history of previous surgery Family History Paternal Grandmother Breast cancer Mother HTN (hypertension) Diabetes mellitus Maternal Grandmother Throat cancer Social History Household Members Other:: sister Housing: Apartment Alcohol intake: current Alcohol intake frequency: holidays/special occasions only Alcohol type: wine Patient Tobacco Use Status: Never used Tobacco e-Cigarette/Vaping Use: Never Used Second Hand Smoke Exposure: No service: No Current occupational status: employed 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 Current occupational exposures/hazards: No Sexual orientation: Straight/Heterosexual Gender identity: Female Female Reproductive History Menstrual Age of Menarche: 10 Date of last menstrual period: 02/25/23 Physical Exam Vital Signs: Last Vital Signs BP 120/80 03/13/23 10:36 BMI result Body Mass Index 29.2 Const General: cooperative, healthy appearing, comfortable, no acute distress, well developed, alert and awake Assessment & Plan Assessment & Plan (1) Contraceptive surveillance: Code(s): Z30.40 - Encounter for surveillance of contraceptives, unspecified Plan: Discussed: She was instructed to go to ER if she develops loss of vision, severe headache that does not resolve, chest pain, difficulty breathing, abdominal pain, or pain or tenderness in extremity. Call the office with any concerns. Rx for Apri sent to pharmacy, Rx 84 pack. All of her questions and concerns were addressed to the best of my ability and shared decision making. She is agreeable to plan of care. RTO for AG 04/2023. Medications: Refilled desogestrel-ethinyl estradiol 0.15-0.03 mg (Apri) 1 tab PO DAILY 84 tabs 0RF 28 days Coding Level of Care Code Est Pt Level 3 (41575) Diagnoses Contraceptive surveillance Z30.40
== END 2023-03-13 10:50 | disposition home or self-care (01) ==
PROVIDERS: PCP Internal Medicine; Visit Provider Advanced Practice Midwife
DX: Z30.40 Encounter for surveillance of contraceptives, unspecified (principal)
CPT/HCPCS: 99213

== ENCOUNTER → 2023-03-13 10:35 | Outpatient (BNVA) | payer OTHER, SELFPAY | PROVIDERS: PCP Internal Medicine; Visit Provider Advanced Practice Midwife ==

== ENCOUNTER 2023-04-20 23:06 | Emergency (ER) | payer OTHER, SELFPAY ==
--- NOTE | ~2023-04-20 | XR_ITS ---
EXAMINATION: XR CHEST CLINICAL INFORMATION: Cough. COMPARISON: None available. TECHNIQUE: 2 views of the chest were obtained. FINDINGS: No significant abnormality is noted involving the heart, lungs, mediastinum, bony thorax or soft tissues. XR/XR chest 2V IMPRESSION: Unremarkable examination.
[2023-04-20 23:09] VITALS: BP 119/82; PULSE 110; RESP 18; TEMP 36.4; O2SAT 97; BMI 27.8
[2023-04-20 23:57] LABS: Influenza A PCR NEGATIVE (Negative); Influenza B PCR NEGATIVE (Negative); Resp Syncy Virus RNA Qual PCR NEGATIVE (Negative); SARS COV2 PCR INHOUSE NEGATIVE (Negative)
--- NOTE | 2023-04-21 00:21 | ED.URI ---
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 no fever no chills using inhaler without much relief patient has not seen any ENT specialist Related Data Previous Rx's Medication Instructions Recorded desogestrel 0.15 mg-ethinyl 1 tab PO DAILY 28 days #84 tabs 03/13/23 estradiol 0.03 mg tablet (Apri) albuterol sulfate 90 mcg/actuation 2 puff inhalation Q4-6H PRN 04/10/23 aerosol inhaler shortness of breath or wheezing #6.7 grams albuterol sulfate 90 mcg/actuation 2 puff inhalation Q4-6H PRN 04/21/23 aerosol inhaler (ProAir HFA) shortness of breath or wheezing #8.5 grams amoxicillin 875 mg-potassium 1 tab PO BID #20 tabs 04/21/23 clavulanate 125 mg tablet fluticasone propionate 50 2 spray intranasal DAILY #16 grams 04/21/23 mcg/actuation nasal spray,suspension montelukast 10 mg tablet 10 mg PO BEDTIME #90 tabs 04/21/23 (Singulair) prednisone 20 mg tablet 40 mg (2 x 20 mg) PO DAILY #10 tabs 04/21/23 Allergies Allergy/AdvReac Type Severity Reaction Status Date / Time Sulfa (Sulfonamide Allergy Unknown hives Verified 03/13/23 10:38 Antibiotics) SEASONAL ALLERGIES Allergy Unknown ITCH/SNEEZI Uncoded 11/20/22 08:29 NG Review of Systems Review of Systems: Yes all other systems are reviewed and are negative PMFSH Past Medical History Medical History Moderate persistent asthma Allergic rhinitis Mild asthma Surgical History No history of previous surgery Family History Family History Paternal Grandmother Breast cancer Mother HTN (hypertension) Diabetes mellitus Maternal Grandmother Throat cancer Social History Household Members Other:: sister Housing: Apartment Alcohol intake: current Alcohol intake frequency: holidays/special occasions only Alcohol type: wine Patient Tobacco Use Status: Never used Tobacco e-Cigarette/Vaping Use: Never Used Second Hand Smoke Exposure: No Advance Directives: No Advance Directives Information Provided: Yes service: No Current occupational status: employed 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 Oriented X3. No acute distress. ENT: Pharynx normal. Oral Mucosa moist inflamed turbinates with mucopurulent discharge Neck: Normal inspection. Neck supple. CVS: Normal heart rate and rhythm. Pulses normal. Respiratory: No respiratory distress. Equal air entry bilateral, no wheezing/rales/rhonchi Abdomen: Soft and nontender. Skin: Skin warm and dry. Normal skin color. Normal skin turgor. Extremities: No lower extremity edema. Neuro: Oriented X 3. Medications Administered Discontinued Medications Generic Name Dose Route Start Last Admin Trade Name Freq PRN Reason Stop Dose Admin Amoxicillin/Clavulanate Potassium 875 mg 04/21/23 00:32 04/21/23 00:49 Amoxicillin/Potassium Clav 875 Mg Tablet PO 04/21/23 00:33 875 mg ONCE ONE Administration Dexamethasone 10 mg 04/21/23 00:32 04/21/23 00:49 Dexamethasone 2 Mg Tablet PO 04/21/23 00:33 10 mg ONCE ONE Administration Medical Decision Making Medical Decision Making MDM Narrative: Patient has chronic allergies asthma chronic rhinosinusitis discharge patient home on nasal spray antibiotic prednisone Lab Data [facility] Lab Attestation statement: I reviewed the patient's lab results. Labs: Lab Results 04/20/23 Range/Units 23:17 Influenza Type A (PCR) NEGATIVE (Negative) Influenza Type B (PCR) NEGATIVE (Negative) RSV RNA Qual (PCR) NEGATIVE (Negative) SARS-CoV-2 RNA (RT-PCR) NEGATIVE (Negative) Discharge Plan Discharge Clinical Impression: Asthmatic bronchitis , chronic Patient Disposition: Home, Self-Care Instructions: Asthma (ED), Chronic Bronchitis (ED) Additional Instructions: Continue to use your inhaler Nasal spray as prescribed Take Singulair daily Prednisone and antibiotic as prescribed Follow-up with PCP Prescriptions: New fluticasone propionate 50 mcg/actuation spray,suspension 2 spray intranasal DAILY Qty: 16 1RF Rx Instructions: administer into each nostril montelukast [Singulair] 10 mg tablet 10 mg PO BEDTIME Qty: 90 0RF prednisone 20 mg tablet 40 mg PO DAILY Qty: 10 0RF amoxicillin-pot clavulanate 875-125 mg tablet 1 tab PO BID Qty: 20 0RF albuterol sulfate [ProAir HFA] 90 mcg/actuation HFA aerosol inhaler 2 puff inhalation Q4-6H PRN (Reason: shortness of breath or wheezing) Qty: 8.5 0RF No Action albuterol sulfate 90 mcg/actuation HFA aerosol inhaler 2 puff inhalation Q4-6H PRN (Reason: shortness of breath or wheezing) Qty: 6.7 0RF Adacel(Tdap Adolesn/Adult)(PF) 2 Lf-(2.5-5-3-5 mcg)-5Lf/0.5 mL syringe 0.5 ml IM ONCE Qty: 0.5 0RF desogestrel-ethinyl estradiol [Apri] 0.15-0.03 mg tablet 1 tab PO DAILY 28 Days Qty: 84 0RF Interventions: ED Discharge Assessment Last Done: 04/21/23 00:53 Discharge Date/Time: 04/21/23 00:54
[2023-04-21 00:39] VITALS: PULSE 95; RESP 17; O2SAT 99
[2023-04-21] MEDS: dexAMETHasone 2 MG TABLET 10 MG PO (00:49)
[2023-04-21] MEDS: Amoxicillin/Potassium Clav 875 MG TABLET PO (00:49)
== END 2023-04-21 00:54 | disposition home or self-care (01) ==
PROVIDERS: Emergency Provider Internal Medicine
DX: J42 Unspecified chronic bronchitis (principal); R06.02 Shortness of breath; R05.9 Cough, unspecified; Z20.822 Contact with and (suspected) exposure to COVID-19; Z20.828 Contact with and (suspected) exposure to other viral communicable diseases
CPT/HCPCS: 0241U; 71046; 99283; J8540

== ENCOUNTER 2023-05-15 08:31 | Outpatient (AMB) | payer OTHER, SELFPAY ==
--- NOTE | 2023-05-15 08:41 | MHC.OFFVIS ---
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 Doing well with no concerns. Doing well on Apri. She tries to eat healthy and stays active with exercise. Currently is sexually active. She denies vaginal itching and irritation. STI screening offered; she accepts. Denies family history of breast, ovarian or colon cancer. Last pap smear 11/2019, negative. She denies any contraindications to control such as: migraines with aura, history of DVT or pulmonary emboli, high blood pressure, liver disease, thrombolic disorders, Lupus, +ATUL, breast cancer, or smoking. [facility] Medical History Moderate persistent asthma Allergic rhinitis Mild asthma Surgical History No history of previous surgery Family History Paternal Grandmother Breast cancer Mother HTN (hypertension) Diabetes mellitus Maternal Grandmother Throat cancer Social History (Updated 05/15/23 @ 09:08 by Missy Laura CNM) Household Members Other:: sister Housing: Apartment Alcohol intake: current Alcohol intake frequency: holidays/special occasions only Alcohol type: wine Patient Tobacco Use Status: Never used Tobacco e-Cigarette/Vaping Use: Never Used Second Hand Smoke Exposure: No service: No Current occupational status: employed 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, 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 Current occupational exposures/hazards: No Sexual orientation: Straight/Heterosexual Gender identity: Female Female Reproductive History Menstrual Age of Menarche: 10 Date of last menstrual period: 04/24/23 control method: pills Total pregnancies: 0 Date of last pap smear: 12/18/19 (neg) Review of Systems Const All systems reviewed & are unremarkable except as noted in HPI and below Reports as per HPI Eyes Reports no additional complaints ENT Reports no additional complaints Card Reports no additional complaints Resp Reports no additional complaints GI Reports as per HPI and Reports no additional complaints Reports as per HPI Musc Reports no additional complaints Skin/Breast Reports as per HPI Neuro Reports no additional complaints Psych Reports no additional complaints Endo Reports no additional complaints Madan/Lymph Reports no additional complaints Aller/Immun Reports no additional complaints Physical Exam Vital Signs: Last Vital Signs BP 110/70 05/15/23 08:44 BMI result Body Mass Index 29.4 Const General: cooperative, healthy appearing, no acute distress, well developed and alert Orientation/consciousness: patient oriented x3 HEENT Head: Yes normal to inspection Eyes General: appearance normal, both eyes and all related structures Neck Neck: Yes normal visual inspection Thyroid: Thyroid normal Chest Chest palpation & inspection: normal inspection of the chest and other (no puckering, dimpling, peau de orange, retraction, discharge, masses) Breast/axilla inspection: normal inspection of the breasts Breast/axilla palpation: normal palpation of the breasts Resp Effort & Inspection: normal respiratory effort GI Inspection: Yes normal to inspection Palpation (GI): Soft to palpation Rectal Exam - Female: deferred General: Yes bladder normal to palpation External Female Exam: normal external appearance and normal appearance of the urethra Speculum Exam - Vagina: normal appearance of the vagina, normal palpation and normal vaginal discharge Speculum Exam - Cervix: normal appearance of the cervix and normal palpation Bimanual exam- vagina & uterus: normal bimanual exam, normal palpation, uterine size normal, bladder normal to palpation, normal palpation and non-tender Bimanual Exam- Adnexa, other: no masses Skin General skin exam: no rashes or lesions noted Rashes: no rashes Neuro General: patient oriented x3 Cognition (Neuro): normal cognition Extrem General: Yes normal to inspection Psych Attitude: cooperative Thought process: Normal thought process present Assessment & Plan Assessment & Plan (1) Encounter for well woman exam with routine gynecological exam: Code(s): Z01.419 - Encounter for gynecological examination (general) (routine) without abnormal findings Plan Discussed: Current recommendations for pap smears per ASCCP guidelines. Breast awareness and periodic breast exams. Maintain a healthy lifestyle including a well balanced diet and routine exercise. Use condoms for STI prevention. control hormone use warnings: go to ER if and loss of vision, blindness, severe headache, chest pain or difficulty breathing, severe abdominal pain, or any pain or swelling in an extremity. All of her questions and concerns were addressed to the best of my ability. RTO in one year for annual expressive therapist examination. This note is constructed using voice recognition software. 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 Orders: Orders HIV Ab/Ag Today Z20.2 - Contact with and (suspected) exposure to infections with a predominantly sexual mode of transmission Hepatitis C Antibody Today Z20.2 - Contact with and (suspected) exposure to infections with a predominantly sexual mode of transmission Hepatitis B Core Antibody Today Z20.2 - Contact with and (suspected) exposure to infections with a predominantly sexual mode of transmission Syphilis Screen Today Z20.2 - Contact with and (suspected) exposure to infections with a predominantly sexual mode of transmission Medications: Refilled desogestrel-ethinyl estradiol 0.15-0.03 mg (Apri) 1 tab PO DAILY 28 days 84 tabs 4RF Coding Level of Care Code Est Pt Prev Care 18-39y(36616) Diagnoses Encounter for well woman exam with routine gynecological exam Z01.419
[2023-05-15 08:44] VITALS: BP 110/70; BMI 29.4
== END 2023-05-15 09:10 | disposition home or self-care (01) ==
PROVIDERS: Visit Provider Advanced Practice Midwife
DX: Z01.419 Encounter for gynecological examination (general) (routine) without abnormal findings (principal)
CPT/HCPCS: 99395

== ENCOUNTER 2023-05-15 08:31 | Outpatient (REF) | payer OTHER, SELFPAY ==
[2023-05-15 16:17] LABS: CT PCR NOT DETECTED (Not Detect.); NG PCR NOT DETECTED (Not Detect.)
== END 2023-05-15 08:32 | disposition home or self-care (01) ==
LOC: HO.LNP 08:31
PROVIDERS: Visit Provider Advanced Practice Midwife
DX: Z01.419 Encounter for gynecological examination (general) (routine) without abnormal findings (principal); Z20.2 Contact with and (suspected) exposure to infections with a predominantly sexual mode of transmission
CPT/HCPCS: 0353U; 88142

== ENCOUNTER 2023-09-01 10:22 | Outpatient (AMB) | payer OTHER, SELFPAY ==
[2023-09-01 10:41] VITALS: BP 118/78; PULSE 100; TEMP 37.2; O2SAT 97; BMI 29.0
--- NOTE | 2023-09-01 10:41 | MHC.OFFWIV ---
Intake Vital Signs 09/01/23 10:41 Height 5 ft 3 in Weight 163 lb 8 oz BMI 29.0 BP 118/78 Blood Pressure Location Rt brachial Position Sitting Pulse 100 Pulse Source Pulse Oximeter Temp 98.9 F Temp Source Oral Pulse Oximetry (%) 97 Oxygen Delivery Method Room Air Intake Visit Reasons: EP ?Strep Intake Note: Patient is here with sore throat since , with fever, chills, and body aches, getting progressively worse. Patient Tobacco Use Status: Never used Tobacco Allergies Sulfa (Sulfonamide Antibiotics) Allergy (Unknown, Verified 09/01/23 10:44) hives SEASONAL ALLERGIES Allergy (Unknown, Uncoded 09/01/23 10:44) ITCH/SNEEZING Do you need a note to return to daycare/school/sports/work: Yes HPI EP ?Strep HPI Details Patient is a 23-year-old female comes to the walk-in clinic 2 days after onset of nasal congestion, postnasal drip, sore throat, chills, myalgias, and rare cough. She works at [employer]. She reports history of asthma, and feeling the need to use her inhaler more often due to feeling her throat tight from her tonsils, as well as occasional heavy breathing. She has no wheezing and no persistent cough symptoms. She denies shortness of breath, difficulty breathing, headache or dizziness, loss of sense of taste or smell, nausea vomiting or diarrhea, weakness, or other significant associated symptoms. [facility] Medical History Moderate persistent asthma Allergic rhinitis Mild asthma Surgical History No history of previous surgery Family History Paternal Grandmother Breast cancer Mother HTN (hypertension) Diabetes mellitus Maternal Grandmother Throat cancer Social History Household Members Other:: sister Housing: Apartment Alcohol intake: current Alcohol intake frequency: holidays/special occasions only Alcohol type: wine Patient Tobacco Use Status: Never used Tobacco e-Cigarette/Vaping Use: Never Used Second Hand Smoke Exposure: No service: No Current occupational status: employed 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, 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 Current occupational exposures/hazards: No Sexual orientation: Straight/Heterosexual Gender identity: Female Female Reproductive History Menstrual Age of Menarche: 10 Review of Systems Const All systems reviewed & are unremarkable except as noted in HPI and below Physical Exam Vital Signs: Last Vital Signs Temp 98.9 F 09/01/23 10:41 Pulse 100 09/01/23 10:41 BP 118/78 09/01/23 10:41 Pulse Ox 97 09/01/23 10:41 Oxygen Delivery Method Room Air 09/01/23 10:41 BMI result Body Mass Index 29.0 Const General: cooperative, healthy appearing, comfortable, no acute distress, alert, awake, Physically active and well groomed; No anxious, diaphoretic, ill appearing, intoxicated appearing, poor hygiene or tired appearing Nutritional Appearance: average body habitus Orientation/consciousness: oriented to person Limitations: no limitations HEENT Head: Yes normal to inspection, Yes normocephalic and Yes atraumatic Ears: hearing grossly normal bilaterally, external ears normal, TM's normal bilaterally and EAC's normal General nose exam: Normal external nose present, No nasal polyps present, Abnormal mucous membranes and turbinates present and Nasal discharge present Face and sinus: Yes normal facial exam, Yes sinuses nontender and Yes face symmetric Mouth: Normal oral and palatal mucosa present, lip normal and tongue normal Throat: Yes uvula midline, Yes abnormal tonsil (mildly erythematous bilaterally), No peritonsillar mass, Yes posterior oropharynx abnormal, Yes postnasal drainage, No uvular edema, No cobblestoning and Yes other (Boggy and pale appearance of tonsils, no exudates noted) Eyes General: appearance normal, both eyes and all related structures Neck Neck: Yes normal visual inspection, Yes full ROM, Yes no lymphadenopathy, Yes trachea midline, Yes supple and No anterior neck swelling Chest Chest palpation & inspection: normal palpation of entire chest wall Resp Effort & Inspection: normal respiratory effort, able to speak in complete sentences, no audible wheezes, no cough, no grunting, not labored, no nasal flaring, no retractions and symmetric chest movement Auscultation: clear to auscultation bilaterally, no crackles, no rales, no rhonchi, no wheezes, lung sounds not diminished and No rub present Cardio Palpation: normal PMI Rate: regular rate Rhythm: regular rhythm Heart sounds: S1 normal heart sound present and S2 normal heart sound present Skin Other: Good color, warm and dry Neuro General: oriented to person Psych Appearance: grossly normal Mental Status: mental status grossly normal Speech and movement: Normal speech and movement present Affect: normal affect Attitude: cooperative Thought process: Normal thought process present Insight: Good insight present (Psych) Judgement: Good judgement present (Psych) Results AMB Rapid Strep AMB Rapid Strep Negative Last Edit by Fina Whitten CMA on 09/01/23 10:58 Results Reviewed Results Reviewed: Laboratory Last Values Strep Scn Rapid Clinic Negative 09/01/23 10:42 Assessment & Plan Assessment & Plan (1) Viral syndrome: Code(s): B34.9 - Viral infection, unspecified Plan: Pending results for flu COVID and RSV. Will write her for Tamiflu in case it comes back positive after walk-in is closed today. She has access to the patient portal for results. She has a history of asthma, so we discussed keeping up with albuterol as needed, however she does not currently seem to have exacerbated asthma symptoms. She was mostly concerned with the whitish aspect to her tonsils, which appear boggy to be but do not appear to be exudative. Her rapid strep test was negative, and I do not think there is a superinfection of strep with her URI. Supportive care was discussed, and she will follow up if symptoms persist or worsen. 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 Note given to excuse her from work for another 2 days. Orders: Orders AMB Rapid Strep Screen Today J02.9 - Acute pharyngitis, unspecified SARS-CoV2/FLU/RSV Today R05.9 - Cough, unspecified Medications: New oseltamivir (Tamiflu) 75 mg PO BID 10 caps 0RF 5 days Coding Level of Care Code Est Pt Level 4 (65787) Diagnoses Viral syndrome B34.9
== END 2023-09-01 12:37 | disposition home or self-care (01) ==
PROVIDERS: Visit Provider Physician Assistant Medical
DX: B34.9 Viral infection, unspecified (principal); J02.9 Acute pharyngitis, unspecified
CPT/HCPCS: 87880; 99051; 99214

== ENCOUNTER 2023-09-01 11:35 | Outpatient (REF) | payer OTHER, SELFPAY ==
[2023-09-01 14:18] LABS: Influenza A PCR NEGATIVE (Negative); Influenza B PCR NEGATIVE (Negative); Resp Syncy Virus RNA Qual PCR NEGATIVE (Negative); SARS COV2 PCR INHOUSE NEGATIVE (Negative)
== END 2023-09-01 11:36 | disposition home or self-care (01) ==
LOC: HO.LAB 11:35
PROVIDERS: Visit Provider Physician Assistant Medical
DX: R05.9 Cough, unspecified (principal); J06.9 Acute upper respiratory infection, unspecified
CPT/HCPCS: 0241U

== ENCOUNTER 2023-09-12 13:59 | Outpatient (AMB) | payer OTHER, SELFPAY ==
[2023-09-12 14:01] VITALS: BMI 28.9
--- NOTE | 2023-09-12 14:01 | A.OFFVIS_ITS ---
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 States her pink pops when bending. Pain in her MCP as well. States this started about 1 months ago and has not improved. Denies numbness, tingling or recent injury. Sajan is an employee ay [employer] dept. 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 She complains of popping , palpable beneath the A1 janene, in her small finger when flexing and extending her fingers. She says this is not particularly painful. She says this has been present for ~2 months. [facility] Medical History Moderate persistent asthma Allergic rhinitis Mild asthma Surgical History No history of previous surgery Family History Paternal Grandmother Breast cancer Mother HTN (hypertension) Diabetes mellitus Maternal Grandmother Throat cancer Social History (Updated 09/12/23 @ 14:10 by ELLE Cardona) Household Members Other:: sister Housing: Apartment Alcohol intake: current Alcohol intake frequency: holidays/special occasions only Alcohol type: wine Patient Tobacco Use Status: Never used Tobacco e-Cigarette/Vaping Use: Never Used Second Hand Smoke Exposure: No service: No Current occupational status: employed 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, 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 Current occupational exposures/hazards: No Sexual orientation: Straight/Heterosexual Gender identity: Female Female Reproductive History Menstrual Age of Menarche: 10 Review of Systems Const All systems reviewed & are unremarkable except as noted in HPI and below Physical Exam Vital Signs: BMI result Body Mass Index 28.9 Const General: cooperative, healthy appearing and no acute distress Orientation/consciousness: patient oriented x3 HEENT Head: Yes normocephalic and Yes atraumatic Eyes EOM: EOMs intact bilaterally Resp Effort & Inspection: normal respiratory effort and able to speak in complete sentences Cardio Jugular venous distension: no JVD Skin General skin exam: turgor normal Rashes: no rashes Neuro General: patient oriented x3 Extrem Other: Evaluation of Right Upper Extremity: The patient is alert, oriented, and in no acute distress Neuro: Median, Ulnar, Radial nerves motor and sensory intact and sensation is normal to the tips of all digits Vascular: Cap refill brisk ROM: She can make a fist and extend all her digits No locking or catching, however when I palpate the area over the a1 janene of her small finger and have her flex and extend her finger, I can feel a small ma ss pass underneath the a1 janene, and can fell crepitus of mass moving with the tendon. This could be due to some inflammatory tissue or else possibly a mass on the tendon. Skin: No lacerations or abrasions. General: No Ecchymosis. No Erythema or evidence of infection. Psych Appearance: grossly normal Affect: normal affect Attitude: cooperative Office Procedures Fracture Care Details: No fracture, injection Fracture Billing Code: Fracture Billing Code Assessment & Plan Assessment & Plan (1) Trigger little finger of right hand: Code(s): M65.351 - Trigger finger, right little finger (2) Tendon mass: Code(s): M67.80 - Other specified disorders of synovium and tendon, unspecified site Plan Assessment & Plan: 1. Right small finger trigger finger, with possible tendon mass I educated her about this condition I discussed operative and non-operative treatment options The patient would like to proceed with an injection. If the injection is not helpful we may want to consider an a1 janene release & evaluation of possible tendon mass Injection #1: The risks and benefits of a steroid injection including but not limited to risk of damage to blood vessels, nerves, tendons, infection, skin bleaching, failure to improve symptoms, increased pain, and possible need for further injections or other intervention were discussed with the patient and the patient wishes to proceed with the steroid injection. Once consent was obtained, I sterilely prepped the area over the A1 janene of the flexor tendon sheath of the right small finger. I then injected the flexor tendon sheath with a combination of 1 mL of dexamethasone (4mg/ml), and 1% lidocaine. The patient tolerated the procedure well with no complications. If the patient continues to have locking and catching 4-6 weeks following this injection, they may call to schedule appointment to discuss alternative treatment options Follow-up prn Scribed for Fidelia Rodrigues MD by Perry Rosales, medical service technician, on 09/12/23 at 2:20, EST. Coding Level of Care Code New Pt Level 3 (74389) Diagnoses Trigger little finger of right hand M65.351 Tendon mass M67.80 CPT Codes Fracture Care - Fracture Billing Code: Fracture Billing Code ([id number])
== END 2023-09-12 14:31 | disposition home or self-care (01) ==
PROVIDERS: Visit Provider Orthopaedic Surgery
DX: M65.351 Trigger finger, right little finger (principal); M67.80 Other specified disorders of synovium and tendon, unspecified site
CPT/HCPCS: 20550; 99203

== ENCOUNTER → 2023-09-12 13:59 | Outpatient (BNVA) | payer OTHER, SELFPAY | PROVIDERS: Visit Provider Orthopaedic Surgery | DX: M65.351 Trigger finger, right little finger (principal); M67.80 Other specified disorders of synovium and tendon, unspecified site | CPT/HCPCS: 20550; J1100 ==

== ENCOUNTER 2024-01-21 14:02 | Outpatient (AMB) | payer OTHER, SELFPAY ==
[2024-01-21 14:07] VITALS: BP 118/74; PULSE 78; O2SAT 98; BMI 29.9
--- NOTE | 2024-01-21 14:07 | MHC.PC.OV ---
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: patient is here for annual exam, patient is here for concern about possibly having ADHD Optometrist Owner Required: No Accompanied by: Self / Same As Patient Allergies sulfamethoxazole [From Bactrim] Allergy (Severe, Verified 01/21/24 14:34) Hives trimethoprim [From Bactrim] Allergy (Severe, Verified 01/21/24 14:34) Hives Sulfa (Sulfonamide Antibiotics) Allergy (Unknown, Verified 01/21/24 14:34) hives SEASONAL ALLERGIES Allergy (Unknown, Uncoded 01/21/24 14:34) ITCH/SNEEZING Medication List - Last Reconciled 01/21/24 by EVERETTE Avila albuterol sulfate 90 mcg/actuation 2 puffs inhalation Q4-6H PRN albuterol sulfate 90 mcg/actuation (ProAir HFA) 2 puffs inhalation Q4-6H PRN desogestrel-ethinyl estradiol 0.15-0.03 mg (Apri) 1 tab PO DAILY 28 days Tobacco use date assessed: 01/21/24 Dental Screening Dental Screen Date: 01/21/24 Did you have a dental visit in the last 12 months?: Yes Did you have a dental problem in the last 6 months where you did not have access to dental care?: No Was dental information given to patient?: Patient has dentist 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 Will order labs. 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 Pt is interested in seeing a therapist. Will have team speak with pt. Denies any SI and HI. 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 1. Little interest or pleasure in doing things: more than half the days 2. Feeling down, depressed, or hopeless: not at all 3. Trouble falling or staying asleep, or sleeping too much: nearly every day 4. Feeling tired or having little energy: more than half the days 5. Poor appetite or overeating: more than half the days 6. Feeling bad about yourself - or that you are a failure or have let yourself or your family down: more than half the days 7. Trouble concentrating on things, such as reading the newspaper or watching television: more than half the days 8. Moving or speaking so slowly that other people could have noticed. Or the opposite - being so fidgety or restless that you have been moving around a lot more than usual: more than half the days 9. Thoughts that you would be better off or of hurting yourself in some way: not at all Total score: 15 Depression Screening Interpretation: Positive (requesting therapist, will have dana speak with pt) Depression Screening Follow-up: Existing condition Depression Screening Done: Yes 65194 - PHQ-9 Billing: Yes Source: Developed by Drs. Boston Mckinnon, Kathie Ramirez, Reji Rascon and colleagues, with an educational deborah from [employer] [facility]. Thrive Questionnaire Date Thrive assessed: 01/21/24 I am a: Patient What is your living situation today?: I have a steady place to live Within the past 12 months, did the food you bought not last and you didn't have the money to get more?: Never true Within the past 12 months, did you worry whether your food would run out before you got money to buy more?: Never true Do you have trouble paying for medicines?: No Do you have trouble getting transportation to medical appointments?: No Do you have trouble paying your heating and electricity bill?: No Do you have trouble taking care of your child, family member or friend?: No Do you have trouble with day-to-day activities such as bathing, preparing meals, shopping, managing finances, etc.?: No Are you currently unemployed and looking for a job?: No Are you interested in more education?: Yes Please select the resources that you would like help with: None Currently or been in a relationship where the following occur: No concerns reported THRIVE Score: 0 AUDIT C Alcohol Use Questionnaire (AUDIT-C) 1. How often do you have a drink containing alcohol?: Never 3. How often do you have six or more drinks on one occasion?: Never Total Score: 0 Score Reviewed/Action Taken: Yes JOSE-7 AMB Questionnaire JOSE-7 Date JOSE - 7 assessed: 01/21/24 Feeling nervous, anxious, or on edge: 2 = More than half the days Not being able to stop or control worryin = Several days Worrying too much about different things: 2 = More than half the days Trouble relaxin = More than half the days Being so restless that it is hard to sit still: 2 = More than half the days Becoming easily annoyed or irritable: 0 = Not at all Feeling afraid as if something awful might happen: 0 = Not at all Total JOSE-7 score (0-4 normal; 5-9 mild; 10-14 moderate; 15-21 severe): 9 Source: Developed by Drs. Boston Mckinnon, Kathie Ramirez, Reji Rascon and colleagues, with an educational deborah from [employer]. JOSE-7 Assessment Billing JOSE-7 Assessment Tool: JOSE-7 Assessment 18021 Review of Systems Const Denies chills and Denies fever(s) Eyes Denies blurry vision ENT Denies vertigo, Denies dizziness and Denies sore throat Card Denies chest pain at rest, Denies chest pain with activity, Denies diaphoresis, Denies dyspnea and Denies dyspnea on exertion Resp Denies cough, Denies dyspnea, Denies dyspnea on exertion and Denies wheezing GI Denies abdominal pain, Denies melena, Denies hematochezia, Denies constipation, Denies diarrhea and Denies loose stools Denies hematuria Musc Denies numbness and Denies tingling Skin/Breast Denies lesions Neuro Denies vertigo, Denies dizziness, Denies numbness and Denies tingling Psych Denies anxiety, Denies depression, Denies homicidal ideation, Denies suicidal ideation and Denies other (substance abuse) Aller/Immun Denies wheezing Physical exam (Primary Care) Vital Signs: Last Vital Signs Pulse 78 01/21/24 14:07 BP 118/74 01/21/24 14:07 Pulse Ox 98 01/21/24 14:07 Oxygen Delivery Method Room Air 01/21/24 14:07 BMI result Body Mass Index 29.9 Tobacco/Smoking Status: Tobacco use Status Tobacco use date assessed 01/21/24 01/21/24 14:22 Patient Tobacco Use Status Never used Tobacco 01/21/24 14:22 e-Cigarette/Vaping Use Never Used 01/21/24 14:22 PHQ-9: PHQ-9 Score PHQ-9: Total score 15 01/21/24 14:34 Depression Screening Interpretation: Positive (requesting therapist, will have dana speak with pt) Depression Screening Follow-up: Existing condition Thrive Assessment: Date of Thrive Assessment Date Thrive assessed 01/21/24 01/21/24 14:22 Currently or been in a relationship where the following occur: No concerns reported Const General: cooperative Nutritional Appearance: well nourished Orientation/consciousness: patient oriented x3 HENMT Head: Yes normal to inspection, Yes normocephalic and Yes atraumatic Ears: TM's normal bilaterally Eyes General: appearance normal, both eyes and all related structures Alignment and Position: alignment normal and position normal Neck Neck: Yes normal visual inspection, Yes no lymphadenopathy and Yes supple Resp Effort & Inspection: normal respiratory effort Auscultation: clear to auscultation bilaterally Cardio Rate: regular rate Rhythm: regular rhythm Heart sounds: S1 normal heart sound present, S2 normal heart sound present and no murmurs GI Palpation (GI): Soft to palpation and nontender Auscultation: normal bowel sounds Skin Rashes: no rashes Neuro General: patient oriented x3, moves all extremities, no focal motor deficits and deep tendon reflexes 2+ bilaterally Romberg Test: Negative Psych Appearance: grossly normal Mental Status: mental status grossly normal Speech and movement: Normal speech and movement present Affect: normal affect Attitude: cooperative Thought process: Normal thought process present Thought content: Normal thought content present Insight: Good insight present (Psych) Judgement: Good judgement present (Psych) Assessment and Plan Assessment & Plan (1) Physical exam: Code(s): Z00.00 - Encounter for general adult medical examination without abnormal findings Plan The patient agreed to the use of a medical/surgery registered nurse for this encounter. Scribed for EVERETTE Vasquez by Maryann Monroy medical/surgery registered nurse, on 01/21/2024 at 14:35 EST. Orders: Orders TSH reflex Free T4 Today Z00.00 - Encounter for general adult medical examination without abnormal findings UA CC w/rflx Micro + Cult Today Z00.00 - Encounter for general adult medical examination without abnormal findings Complete Blood Count Auto Diff Today Z00.00 - Encounter for general adult medical examination without abnormal findings Comprehensive Mcgill. Panel Fast Today Z00.00 - Encounter for general adult medical examination without abnormal findings Lipid Panel Today Z00.00 - Encounter for general adult medical examination without abnormal findings Coding Level of Care Code New Pt Prev Care 18-39yr(57013 Diagnoses Physical exam Z00.00 Additional Codes JOSE-7 Assessment Billing - JOSE-7 Assessment Tool: JOSE-7 Assessment 45946 ([id number])
== END 2024-01-21 14:53 | disposition home or self-care (01) ==
PROVIDERS: PCP Internal Medicine; Visit Provider Nurse Practitioner Family
DX: Z00.00 Encounter for general adult medical examination without abnormal findings (principal)
CPT/HCPCS: 99395